=== PATIENT | male | born 1965 | race African-American/Black ===

== ENCOUNTER 2016-08-16 19:53 | Emergency (ER) | payer OTHER ==
[~2016-08-16] VITALS: Ht 185.4 cm; Wt 70.0 kg
[2016-08-16 21:51] VITALS: BP 148/79
== END 2016-08-16 21:53 | disposition home or self-care (01) ==
LOC: EMS 20:04
DX: L03.011 Cellulitis of right finger (principal); F17.210 Nicotine dependence, cigarettes, uncomplicated
CPT/HCPCS: 99281; 99283